=== PATIENT | male | born 1975 | race Hispanic/Latino ===

== ENCOUNTER 2019-07-05 16:53 | Emergency (ER) | payer SELFPAY ==
[2019-07-05 17:15] VITALS: BP 123/74; PULSE 70; RESP 16; TEMP 36.5; O2SAT 98
--- NOTE | 2019-07-05 17:53 | ED.GENADULT ---
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 Patient states that he has been in this area about a year, previously lived in [place]. Patient states that he has no PCP and has been off of his medication for about 7-8 month but his symptoms have increased, Patient reports that his PCP in [place] stated he shouldn't be on these medications for a long interval of time. Patient has flat affect, denies any feelings of self harm or harm to others, states falls asleep but can't stay asleep. Informed patient that I can only give short interval of these medications with follow up and further refill by PCP. MD complaint: insomnia, anxiety and depression Onset (ago): day(s) (4-5 days of not being able to sleep) Radiation: non-radiation Severity: similar to prior episodes Associated symptoms: denies other symptoms Treatments prior to arrival: none Related Data Allergies Allergy/AdvReac Type Severity Reaction Status Date / Time No Known Allergies Allergy Verified 07/05/19 17:22 Review of Systems Review of Systems: Narrative: CONSTITUTIONAL: Denies fever, chills, or sweats. EYES: Denies visual changes, redness, or discharge. ENT: Denies rhinorrhea, congestion, sore throat, or otalgia. CARDIOVASCULAR: Denies chest pain, palpitations, or edema. RESPIRATORY: Denies cough or dyspnea. GASTROINTESTINAL: Denies abdominal pain, nausea, vomiting, or diarrhea. GENITOURINARY: Denies dysuria or hematuria. SKIN: Denies rash or itching. MUSCULOSKELETAL: Denies back pain, joint pain, or myalgia. NEUROLOGIC: Denies headache, numbness, or weakness.states insomnia PSYCHIATRIC: History of anxiety or depression, insomnia All systems reviewed & are unremarkable except as noted in HPI and below PMFSH Past Medical History Medical History (Updated 07/12/19 @ 16:42 by Michelle Martines NP) Anxiety and depression Insomnia Social History Social History (Updated 07/12/19 @ 16:43 by Michelle Martines NP) Living arrangements: with family Gender identity (if verbalized by the patient): Male Comments At time of signature, agree with nursing past medical, social history. There is no relevant family history pertinent to the presenting complaint Exam Narrative: Exam Narrative: GENERAL: Well-appearing, well-nourished, and in no acute distress. HEAD: Normocephalic, atraumatic. EYES: PERRLA and EOMI. ENT: Nares clear, no rhinorrhea or epistaxis. Mucous membranes moist.TM's normal with good light reflex, throat pink with no swelling or lesions. NECK: Supple.no lymphadenopathy CHEST: Clear to auscultation. No respiratory distress.SAO2 98%non room air HEART: Regular rate and rhythm. No murmur heard. Normal peripheral pulses. ABDOMEN: Soft, nontender, nondistended, normal active bowel sounds. EXTREMITIES: Normal range of motion. No edema. SKIN: Warm, dry, no rash. NEURO: No focal deficits. Alert and oriented x3. has flat affet Course Vital Signs Vital signs: Vital Signs Temperature 36.5 C 07/05/19 17:15 Pulse Rate 70 07/05/19 17:15 Respiratory Rate 16 07/05/19 17:15 Blood Pressure 123/74 07/05/19 17:15 Pulse Oximetry 98 07/05/19 17:15 Temperature 36.5 C 07/05/19 17:15 Pulse Rate 70 07/05/19 17:15 Respiratory Rate 16 07/05/19 17:15 Blood Pressure 123/74 07/05/19 17:15 Pulse Oximetry 98 07/05/19 17:15 Medical Decision Making Differential Diagnosis Differential Diagnosis: anxiety and depression, insomnia, difficulty staying asleep Medical Records [facility]
== END 2019-07-05 18:22 | disposition home or self-care (01) ==
PROVIDERS: Emergency Provider Registered Nurse
DX: F41.9 Anxiety disorder, unspecified (principal); F32.9 Major depressive disorder, single episode, unspecified; G47.00 Insomnia, unspecified
CPT/HCPCS: 99203; G0463